=== PATIENT | female | born 1960 | race African-American/Black ===

== ENCOUNTER → 2022-06-16 | Outpatient (CLI) | payer MEDICAID ==
--- NOTE | 2022-06-16 12:23 | Diagnostic Imaging Report ---
Indication: Dysphasia. Procedure was performed in conjunction with speech pathology. Video fluoroscopy was performed during swallowing of barium at multiple consistencies. Total of 33 seconds of fluoroscopic time was utilized. Patient ingested thin barium as well as applesauce, banana and cracker consistency. Oral phase unremarkable. There is normal epiglottic tilt and laryngeal elevation. No aspiration or penetration was observed. IMPRESSION: Unremarkable modified barium swallow. Dictated by: Dictated on workstation # [id number]
== END ==
LOC: RAD 09:24
PROVIDERS: ATTEND Nurse Practitioner Family
DX: I63.9 Cerebral infarction, unspecified (principal)
CPT/HCPCS: 74230

== ENCOUNTER 2022-07-21 15:30 | Emergency (ER) | payer MEDICAID ==
[~2022-07-21] VITALS: Ht 165 cm; Wt 72.0 kg
[2022-07-21] MEDS ORDERED: DIATRIZOATE MEGLUM/SODIUM 37% 120 ML (GASTROGRAFIN) NG ONE (16:00)
--- NOTE | 2022-07-21 16:09 | ED GI ---
General Chief Complaint: Catheter/Drain/Tube Problems Stated Complaint: FEEDING TUBE FELL OUT Nursing Triage Note: PT ARRIVED PER EMS FROM [place], PT HAS PULLED OUT FEEDING TUBE. PT IS CONFUSED. Source of Information: Patient, EMS Exam Limitations: No Limitations (JIGNESH ANDREA) History of Present Illness Date Seen by Provider: Jul 21, 2022 Time Seen by Provider: 16:07 Initial Comments Patient is a 61-year-old female who is a [facility]. Patient was sent over to the ED for PEG tube replacement has patient pulled out her PEG tube on arrival. No other current complaints at this time. Requesting PEG tube replacement and to return back to the facility. Eating and drinking without any issue. No change in mental status. Currently at her baseline according to EMS. Patient denies chest pain, abdominal pain, vomiting, headache (JIGNESH ANDREA) Allergies and Home Medications Allergies Coded Allergies: No Known Drug Allergies (Unverified , 07/21/22) Patient Home Medication List Home Medication List Reviewed: Yes (JIGNESH ANDREA) Review of Systems Review of Systems Constitutional: No chills, No diaphoresis, No malaise, No weakness EENTM: No Double Vision, No Eye Pain Respiratory: Denies Cough, Denies SOA With Exertion, Denies SOA at Rest Cardiovascular: Denies Chest Pain Gastrointestinal: Denies Abdominal Pain, Denies Diarrhea, Denies Nausea, Denies Vomiting Genitourinary: Denies Burning, Denies Discharge Musculoskeletal: No back pain, No joint pain (JIGNESH ANDREA) All Other Systems Reviewed Negative Unless Noted: Yes (JIGNESH ANDREA) Past Ckibzzh-Qqeqbo-Efxask Hx Patient Social History Tobacco Use?: No Substance use?: No Alcohol Use?: No Pt feels they are or have been: No (JIGNESH ANDREA) Immunizations Up To Date Influenza Vaccine Up-to-Date: Yes; Up-to-Date First/Initial COVID19 Vaccinat: YES Second COVID19 Vaccination Paul: YES (JIGNESH ANDREA) Past Medical History Surgery/Hospitalization HX: DYSPHAGIA, CVA,GOUT, STAGE 4 KIDNEY DISEASE, DM TYPE 2 (JIGNESH ANDREA) Physical Exam Vital Signs Vital Signs - First Documented 07/21/22 15:35 Temp 36.4 Pulse 79 Resp 18 B/P (MAP) 134/78 (96) Pulse Ox 99 (CATE JAQUEZ MD) Vital Signs Capillary Refill : Less Than 3 Seconds (JIGNESH ANDREA) Height/Weight/BMI Height: '" Weight: lbs. oz. kg; 26.00 BMI Method: General Appearance: WD/WN, no apparent distress HEENT: PERRL/EOMI, normal ENT inspection, TMs normal, pharynx normal Neck: non-tender, full range of motion, supple Respiratory: chest non-tender, lungs clear, normal breath sounds, no respiratory distress Cardiovascular: regular rate, rhythm, no edema, no gallop Gastrointestinal: normal bowel sounds, non tender, soft, no organomegaly, other (Patent stoma. No surrounding redness or swelling. No tenderness to palpate.) Extremities: normal range of motion, non-tender, normal inspection, no pedal edema Back: normal inspection, no CVA tenderness Neurologic/Psychiatric: data analyst report writer II-XII nml as tested, no motor/sensory deficits, alert, normal mood/affect, oriented x 3 Skin: normal color, warm/dry (JIGNESH ANDREA) Progress/Results/Core Measures Results/Orders Vital Signs/I&O 07/21/22 07/21/22 15:35 16:20 Temp 36.4 36.4 Pulse 79 79 Resp 18 18 B/P (MAP) 134/78 (96) 134/78 Pulse Ox 99 99 (CATE JAQUEZ MD) Blood Pressure Mean: 96 Departure Communication (PCP) Difficulty obtaining history from patient due to her current intellectual disability. Patient vital signs stable. Patient was sent over from [facility] for PEG tube replacement. 18-gauge Solis temporary catheter was placed secondary to not having a PEG tube. Successful placement with abdominal x-ray with contrast. Patient tolerated procedure well. Follow-up with GI specialist for correct PEG tube. This was discussed with half-way. Obtained history from EMS and half-way. (JIGNESH ANRDEA) Impression Primary Impression: PEG tube malfunction Disposition: 01 HOME, SELF-CARE Condition: Stable Departure-Patient Inst. Decision time for Depature: 16:35 (JIGNESH ANDREA) Referrals: JACINTO FERNANDEZ DO (PCP/Family) Primary Care Physician Patient Instructions: Gastrostomy, Permanent and Temporary (DC) ATTENDING PHYSICIAN NOTE: I was physically present as attending physician in the emergency department during the care of this patient, but I was not directly involved in the decision making or delivery of care for this patient. (CATE JAQUEZ MD) JIGNESH ANDREA Jul 21, 2022 16:09 CATE JAQUEZ MD Jul 23, 2022 06:29
[2022-07-21 16:20] VITALS: BP 134/78
--- NOTE | 2022-07-21 16:30 | Diagnostic Imaging Report ---
INDICATION: PEG tube placement. Dilute Gastrografin contrast was injected via the indwelling PEG tube. The tip appears to project over the lumen of the gastric body. Contrast opacifies the lumen of the stomach and duodenum without evidence of leak. IMPRESSION: Good positioning of PEG tube without leak identified. Dictated by: Dictated on workstation # [id number]
== END 2022-07-21 16:20 | disposition home or self-care (01) ==
LOC: EDUNIT# 15:30 → ER 15:31
DX: K94.23 Gastrostomy malfunction (principal)
CPT/HCPCS: 43762; 49465

== ENCOUNTER 2022-07-26 09:09 | Emergency (ER) | payer MEDICAID ==
[~2022-07-26] VITALS: Ht 170.2 cm; Wt 89.8 kg
--- NOTE | 2022-07-26 10:51 | ED GU-Female ---
General Chief Complaint: Catheter/Drain/Tube Problems Stated Complaint: G TUBE IS OUT Nursing Triage Note: PT TO [facility] BY [facility] WITH COMPLAINT OF G TUBE FALLING OUT. PT WAS SEEN HERE ON SUNDAY FOR SAME COMPLAINT AND HAD A FAITH CATHETER PLACED DUE TO NO REPLACEMENT PEG TUBE. Source: patient Exam Limitations: no limitations (JIGNESH ANDREA) History of Present Illness Date Seen by Provider: Jul 26, 2022 Time Seen by Provider: 10:48 Initial Comments Patient is a 61-year-old female who presents ED for PEG tube replacement. Patient pulled out her PEG tube at [facility]. She has no other current complaints. Patient is wheelchair-bound. Tolerating feedings. No fever, cough, chest pain, abdominal pain (JIGNESH ANDREA) Allergies and Home Medications Allergies Coded Allergies: No Known Drug Allergies (Unverified , 07/21/22) Patient Home Medication List Home Medication List Reviewed: Yes (JIGNESH ANDREA) Review of Systems Review of Systems Constitutional: No chills, No diaphoresis EENTM: No ear pain, No blurred vision, No double vision Respiratory: No cough, No dyspnea on exertion Cardiovascular: No chest pain Gastrointestinal: No abdominal pain, No diarrhea, No nausea, No vomiting Genitourinary: denies burning, denies discharge Musculoskeletal: No back pain, No joint pain Skin: No change in color Psychiatric/Neurological: Denies Depressed, Denies Emotional Problems (JIGNESH ANDREA) All Other Systemes Reviewed Negative Unless Noted: Yes (JIGNESH ANDREA) Past Wrcqdxp-Dxffuw-Bcmxrn Hx Patient Social History Tobacco Use?: No Use of E-Cig and/or Vaping dev: No Substance use?: No Alcohol Use?: No Pt feels they are or have been: No (JIGNESH ANDREA) Immunizations Up To Date First/Initial COVID19 Vaccinat: YES Second COVID19 Vaccination Paul: YES Third COVID19 Vaccination Date: YES (JIGNESH ANDREA) Past Medical History Surgery/Hospitalization HX: DYSPHAGIA, CVA,GOUT, STAGE 4 KIDNEY DISEASE, DM TYPE 2 (JIGNESH ANDREA) Physical Exam Vital Signs Vital Signs - First Documented 07/26/22 09:38 Pulse 71 Resp 16 B/P (MAP) 135/94 (108) Pulse Ox 100 O2 Delivery Room Air (CATE JAQUEZ MD) Vital Signs Capillary Refill : Less Than 3 Seconds (JIGNESH ANDREA) Height, Weight, BMI Height: '" Weight: lbs. oz. kg; 30.00 BMI Method: General Appearance: WD/WN, no apparent distress HEENT: PERRL/EOMI, normal ENT inspection, TMs normal, pharynx normal Neck: non-tender, full range of motion, supple, normal inspection Cardiovascular: regular rate, rhythm, no edema, no gallop, no JVD Respiratory: chest non-tender, lungs clear, normal breath sounds, no respiratory distress Gastrointestinal: other (stoma noted to RUQ. No surrounding redness, swelling. Clear fluid draining.) Back: normal inspection, no CVA tenderness, no vertebral tenderness Extremities: normal range of motion, non-tender, normal inspection Neurologic/Psychiatric: rn physician office II-XII nml as tested, no motor/sensory deficits, alert, normal mood/affect, oriented x 3 Skin: normal color (JIGNESH ANDRAE) Progress/Results/Core Measures Suspected Sepsis SIRS Temperature: Pulse: 71 Respiratory Rate: 16 Blood Pressure 135 /94 Mean: 108 (JIGNESH ANDREA) Results/Orders Medications Given in ED Current Medications Medications Dose Ordered Sig/Luanne Route Start Time Stop Time Status Last Admin Dose Admin Diatrizoate Meglum/ Diatrizoate Sod 120 ml ONCE ONCE NG 07/26/22 11:15 07/26/22 11:37 DC 07/26/22 11:18 30 ML (CATE JAQUEZ MD) Vital Signs/I&O 07/26/22 07/26/22 09:38 13:03 Pulse 71 Resp 16 B/P (MAP) 135/94 (108) 128/88 Pulse Ox 100 O2 Delivery Room Air (CATE JAQUEZ MD) Vital Signs/I&O Capillary Refill : Less Than 3 Seconds (JIGNESH ANDREA) Blood Pressure Mean: 108 Departure Communication (PCP) Replaced with 18 [place]. PEG tube in place verified with abdominal x-ray. Patient will be discharged back to [facility]. Follow-up with GI specialist. (JIGNESH ANDREA) Impression Primary Impression: PEG tube malfunction Disposition: 01 HOME, SELF-CARE Condition: Stable Departure-Patient Inst. Decision time for Depature: 10:51 (JIGNESH ANDREA) Referrals: JACINTO FERNANDEZ DO (PCP/Family) Primary Care Physician Patient Instructions: Gastrostomy, Permanent and Temporary (DC) ATTENDING PHYSICIAN NOTE: I was physically present as attending physician in the emergency department during the care of this patient, but I was not directly involved in the decision making or delivery of care for this patient. (CATE JAQUEZ MD) JIGNESH ANDREA Jul 26, 2022 10:51 CATE JAQUEZ MD Jul 26, 2022 20:53
[2022-07-26] MEDS ORDERED: DIATRIZOATE MEGLUM/SODIUM 37% 120 ML (GASTROGRAFIN) NG ONE (11:15)
--- NOTE | 2022-07-26 12:14 | Diagnostic Imaging Report ---
INDICATION: PEG tube check COMPARISON: 07/21/2019 TECHNIQUE: 2 radiographs of the abdomen were obtained after placement of dilute Gastrografin through the indwelling percutaneous gastrostomy catheter. Contrast is identified within the lumen of the stomach. Contrast also identified within the colon, likely related to prior PEG tube check. No evidence of bowel obstruction. No acute osseous abnormality. Surgical clips within the upper abdomen. IMPRESSION: Percutaneous gastrostomy catheter is in place with the distal tip within the lumen of the stomach. Dictated by: Dictated on workstation # [id number]
[2022-07-26 13:03] VITALS: BP 128/88
== END 2022-07-26 13:03 | disposition home or self-care (01) ==
LOC: EDUNIT# 09:09 → ER 09:10
DX: K94.23 Gastrostomy malfunction (principal); Z99.3 Dependence on wheelchair
CPT/HCPCS: 49465

== ENCOUNTER 2022-12-13 20:38 | Emergency (ER) | payer MEDICAID ==
[2022-12-13] MEDS ORDERED: OLANZapine 5 MG ODT (ZyPREXA ZYDIS) PO ONE (20:45)
--- NOTE | 2022-12-13 20:47 | ED General ---
General Chief Complaint: Abdominal/GI Problems Stated Complaint: VOMITING Source of Information: Patient, EMS, Long-Term Records, RN/MD Exam Limitations: Physical Impairments History of Present Illness Date Seen by Provider: Dec 13, 2022 Time Seen by Provider: 20:41 Initial Comments 61-year-old female with past medical history of CVA with residual speech deficits, diabetes, hypertension, hyperlipidemia, CKD [facility]. Started around midnight last night with numerous episodes of nonbilious vomiting. She has tried Zofran which helped a little bit, but continued to have vomiting today. Has not really wanted to eat or drink anything today. She is completely bedbound per the penitentiary report and does make her wishes known via talking at times but has significant residual issues from her prior stroke. Has had bowel movements x2 in the past 24 hours. She denies any pain anywhere at this time. Otherwise denying any other acute complaints. Allergies and Home Medications Allergies Coded Allergies: No Known Drug Allergies (Unverified , 07/21/22) Patient Home Medication List Home Medication List Reviewed: Yes Review of Systems Review of Systems Constitutional: No fever EENTM: no symptoms reported Respiratory: no symptoms reported Cardiovascular: no symptoms reported Gastrointestinal: see HPI Genitourinary: no symptoms reported Musculoskeletal: no symptoms reported Skin: no symptoms reported Psychiatric/Neurological: No Symptoms Reported Past Sgcuwak-Omqehx-Nzgane Hx Patient Social History Tobacco Use?: No Immunizations Up To Date First/Initial COVID19 Vaccinat: YES Second COVID19 Vaccination Paul: YES Third COVID19 Vaccination Date: YES Past Medical History Surgery/Hospitalization HX: DYSPHAGIA, CVA,GOUT, STAGE 4 KIDNEY DISEASE, DM TYPE 2 Physical Exam Vital Signs Vital Signs - First Documented 12/13/22 20:40 Pulse 83 Resp 19 Capillary Refill : Height, Weight, BMI Height: '" Weight: lbs. oz. kg; 30.00 BMI Method: General Appearance: WD/WN, Anxious Eyes: Bilateral Eye Normal Inspection HEENT: PERRL/EOMI, Normal ENT Inspection, Pharynx Normal Neck: Full Range of Motion, Normal Inspection, Non Tender, Supple Respiratory: Chest Non Tender, Lungs Clear, Normal Breath Sounds, No Accessory Muscle Use, No Respiratory Distress Cardiovascular: Regular Rate, Rhythm, Normal Peripheral Pulses Gastrointestinal: Normal Bowel Sounds, Non Tender, Soft; No Distended, No Guarding Back: Normal Inspection, No CVA Tenderness Extremity: Normal Capillary Refill, Normal Inspection, Normal Range of Motion, Non Tender, No Calf Tenderness Neurologic/Psychiatric: Alert, Other (Oriented to self, moving all extremities) Skin: Normal Color, Warm/Dry Progress/Results/Core Measures Suspected Sepsis SIRS Temperature: Pulse: Respiratory Rate: Laboratory Tests 12/13/22 20:50: White Blood Count 18.0H Blood Pressure / Mean: Laboratory Tests 12/13/22 20:50: Creatinine 1.52H, Platelet Count 283, Total Bilirubin 0.7 Results/Orders Lab Results Laboratory Tests Test 12/13/22 20:50 12/13/22 22:30 Range/Units White Blood Count 18.0 H 4.3-11.0 10^3/uL Red Blood Count 3.90 3.80-5.11 10^6/uL Hemoglobin 13.2 11.5-16.0 g/dL Hematocrit 39 35-52 % Mean Corpuscular Volume 100 H 80-99 fL Mean Corpuscular Hemoglobin 34 25-34 pg Mean Corpuscular Hemoglobin Concent 34 32-36 g/dL Red Cell Distribution Width 13.0 10.0-14.5 % Platelet Count 283 130-400 10^3/uL Mean Platelet Volume 9.6 9.0-12.2 fL Immature Granulocyte % (Auto) 1 % Neutrophils (%) (Auto) 79 H 42-75 % Lymphocytes (%) (Auto) 14 12-44 % Monocytes (%) (Auto) 6 0-12 % Eosinophils (%) (Auto) 0 0-10 % Basophils (%) (Auto) 0 0-10 % Neutrophils # (Auto) 14.3 H 1.8-7.8 10^3/uL Lymphocytes # (Auto) 2.5 1.0-4.0 10^3/uL Monocytes # (Auto) 1.0 0.0-1.0 10^3/uL Eosinophils # (Auto) 0.0 0.0-0.3 10^3/uL Basophils # (Auto) 0.0 0.0-0.1 10^3/uL Immature Granulocyte # (Auto) 0.2 H 0.0-0.1 10^3/uL Neutrophils % (Manual) 81 % Lymphocytes % (Manual) 13 % Monocytes % (Manual) 3 % Metamyelocytes % 1 % Band Neutrophils 1 % Reactive Lymphocytes 1 % Platelet Estimate ADEQUATE Hypochromasia SLIGHT Target Cells SLIGHT Sodium Level 136 135-145 MMOL/L Potassium Level 3.7 3.6-5.0 MMOL/L Chloride Level 99 98-107 MMOL/L Carbon Dioxide Level 21 21-32 MMOL/L Anion Gap 16 H 5-14 MMOL/L Blood Urea Nitrogen 31 H 7-18 MG/DL Creatinine 1.52 H 0.60-1.30 MG/DL Estimat Glomerular Filtration Rate 39 BUN/Creatinine Ratio 20 Glucose Level 134 H 70-105 MG/DL Calcium Level 11.5 H 8.5-10.1 MG/DL Corrected Calcium 8.5-10.1 MG/DL Magnesium Level 1.8 1.6-2.4 MG/DL Total Bilirubin 0.7 0.1-1.0 MG/DL Aspartate Amino Transf (AST/SGOT) 18 5-34 U/L Alanine Aminotransferase (ALT/SGPT) 52 0-55 U/L Alkaline Phosphatase 105 40-136 U/L Troponin I < 0.028 <0.028 NG/ML Total Protein 8.9 H 6.4-8.2 GM/DL Albumin 4.7 H 3.2-4.5 GM/DL Lipase 6 L 8-78 U/L Urine Color YELLOW Urine Clarity SL CLOUDY Urine pH 8.0 5-9 Urine Specific [place] 1.020 1.016-1.022 Urine Protein 3+ H NEGATIVE Urine Glucose (UA) NEGATIVE NEGATIVE Urine Ketones NEGATIVE NEGATIVE Urine Nitrite NEGATIVE NEGATIVE Urine Bilirubin NEGATIVE NEGATIVE Urine Urobilinogen 0.2 < = 1.0 MG/DL Urine Leukocyte Esterase TRACE H NEGATIVE Urine RBC (Auto) TRACE-I H NEGATIVE Urine RBC 2-5 H /HPF Urine WBC 25-50 H /HPF Urine Squamous Epithelial Cells 10-25 H /HPF Urine Crystals NONE /LPF Urine Bacteria LARGE H /HPF Urine Casts NONE /LPF Urine Mucus LARGE H /LPF Urine Culture Indicated YES My Orders Orders - JIGNESH AYALA MD Cbc With Automated Diff (12/13/22 20:42) Comprehensive Metabolic Panel (12/13/22 20:42) Lipase (12/13/22 20:42) Magnesium (12/13/22 20:42) Troponin I [place] (12/13/22 20:42) Ua Culture If Indicated (12/13/22 20:42) Ed Iv/Invasive Line Start (12/13/22 20:42) Ekg Tracing (12/13/22 20:42) Monitor-Rhythm Ecg Trace Only (12/13/22 20:42) Straight Cath For Spec.-Adult (12/13/22 20:42) Olanzapine Orally Dissolve Tab (Zyprexa (12/13/22 20:45) Ondansetron Injection (Zofran Injectio (12/13/22 21:00) Ns Iv 500 Ml (Sodium Chloride 0.9%) (12/13/22 20:52) Ct Abdomen/Pelvis Wo (12/13/22 20:53) Ns Iv 500 Ml (Sodium Chloride 0.9%) (12/13/22 20:56) Droperidol Inj (Ed Only) (Inapsine Inj ( (12/13/22 21:15) Manual Differential (12/13/22 20:50) Ekg Tracing (12/13/22 21:57) Labetalol Injection (Normodyne Injection (12/13/22 22:45) Urine Culture (12/13/22 22:30) Ceftriaxone Iv/Im (Rocephin Iv/Im) (12/13/22 23:00) Medications Given in ED Current Medications Medications Dose Ordered Sig/Luanne Route Start Time Stop Time Status Last Admin Dose Admin Droperidol 2.5 mg ONCE ONCE IV 12/13/22 21:15 12/13/22 21:16 DC 12/13/22 21:06 2.5 MG Ondansetron HCl 4 mg ONCE ONCE IVP 12/13/22 21:00 12/13/22 21:01 DC 12/13/22 20:57 4 MG Vital Signs/I&O 12/13/22 20:40 Pulse 83 Resp 19 B/P (MAP) Capillary Refill : Progress Note : Progress Note 61-year-old female with above history coming in due to vomiting as [facility]. ABCs were intact and vitals were stable on presentation. Physical exam with a soft and not really tender abdomen, patient has had a prior stroke and has difficulty verbalizing issues. Because of this, broad work-up obtained. EKG with no acute ischemic changes on my interpretation. IV was placed and basic labs were obtained were significant for slightly elevated white blood cell count, urinalysis with concerns for infection, creatinine around her baseline, negative troponin. CT abdomen pelvis on my interpretation with no significant abnormality. Per the overnight stat rad read, there is no obstruction, no calculi or hydronephrosis, some mild bilateral perinephric stranding which is likely senescent. She was given IV ceftriaxone here followed by prescription. I contacted the [facility] a few times to get report as well as follow back up with him. Patient is well-appearing now, and I believe stable for discharge back to the [facility]. She was sent home with strict return precautions. Diagnostic Imaging Diagonstic Imaging: CT (abd/pelvis) Departure Impression Primary Impression: Gastritis Qualified Codes: K29.00 - Acute gastritis without bleeding Additional Impression: Cystitis Disposition: HOME, SELF-CARE Condition: Stable Departure-Patient Inst. Decision time for Depature: 23:25 Referrals: JACINTO FERNANDEZ DO (PCP/Family) Primary Care Physician Patient Instructions: Gastritis ED, Acute Cystitis (DC) Add. Discharge Instructions: Her urine did show an infection. The CT was not concerning for any type of obstruction or concern. This is likely just a GI bug that will take time to pass. Antibiotics were sent to her pharmacy as well as Phenergan suppository as a second line if the Zofran is not working. Scripts Promethazine HCl (Promethazine Suppository) 25 Mg Supp.rect 25 MG RC Q8H PRN for NAUSEA/VOMITING-2ND LINE for 5 Days, #15 SUPP.RECT Prov: JIGNESH AYALA MD 12/13/22 Cefdinir (Cefdinir) 300 Mg Capsule 300 MG PO BID for 5 Days, #10 CAP Prov: JIGNESH AYALA MD 12/13/22 JIGNESH AYALA MD Dec 13, 2022 20:47
[2022-12-13] MEDS ORDERED: NS IV 500 ML 500 ML IV STA (20:52)
[2022-12-13] MEDS ORDERED: NS IV 500 ML 500 ML ONE (20:56)
[2022-12-13] MEDS ORDERED: ONDANSETRON 4 MG/2 ML (SDV) Z0FRAN IVP ONE (21:00)
[2022-12-13 21:14] LABS: BASOPHILS % (AUTO) 0 % (0-10); EOSINOPHILS % (AUTO) 0 % (0-10); HEMATOCRIT 39 % (35-52); HEMOGLOBIN 13.2 g/dL (11.5-16.0); LYMPHOCYTES # (AUTO) 2.5 10^3/uL (1.0-4.0); LYMPHOCYTES % (AUTO) 14 % (12-44); MEAN CORPUSCULAR HEMOGLOBIN 34 pg (25-34); MEAN CORPUSCULAR HGB CONC 34 g/dL (32-36); MEAN CORPUSCULAR VOLUME 100 fL (80-99); MEAN PLATELET VOLUME 9.6 fL (9.0-12.2); MONOCYTES % (AUTO) 6 % (0-12); NEUTROPHILS # (AUTO) 14.3 10^3/uL (1.8-7.8); NEUTROPHILS % (AUTO) 79 % (42-75); PLATELET COUNT 283 10^3/uL (130-400)
[2022-12-13] MEDS ORDERED: DROPERIDOL 5 MG/2 ML (INAPSINE) ED ONLY! IV ONE (21:15)
[2022-12-13 21:30] LABS: ALANINE AMINOTRANSFERASE 52 U/L (0-55); ALBUMIN 4.7 GM/DL (3.2-4.5); ALKALINE PHOSPHATASE 105 U/L (40-136); BILIRUBIN,TOTAL 0.7 MG/DL (0.1-1.0); BUN/CREATININE RATIO 20; CALCIUM 11.5 MG/DL (8.5-10.1); CARBON DIOXIDE 21 MMOL/L (21-32); CHLORIDE 99 MMOL/L (98-107); CREATININE SERUM 1.52 MG/DL (0.60-1.30); GFR ESTIMATED 39; GLUCOSE 134 MG/DL (70-105); LIPASE 6 U/L (8-78); MAGNESIUM 1.8 MG/DL (1.6-2.4); POTASSIUM 3.7 MMOL/L (3.6-5.0); SODIUM 136 MMOL/L (135-145); TOTAL PROTEIN 8.9 GM/DL (6.4-8.2)
[2022-12-13 22:13] LABS: BAND NEUTROPHILS 1 %; LYMPHOCYTES % (MANUAL) 13 %; METAMYELOCYTES % 1 %; MONOCYTES % (MANUAL) 3 %; NEUTROPHILS % (MANUAL) 81 %; REACTIVE LYMPHOCYTES 1 %
[2022-12-13 22:14] LABS: HYPOCHROMASIA SLIGHT; PLATELET ESTIMATE ADEQUATE; TARGET CELLS SLIGHT
[2022-12-13 22:38] LABS: BILIRUBIN,URINE NEGATIVE (NEGATIVE); CLARITY,URINE SL CLOUDY; COLOR,URINE YELLOW; GLUCOSE, URINE (UA) NEGATIVE (NEGATIVE); KETONES,URINE NEGATIVE (NEGATIVE); LEUKOCYTE ESTERASE ,URINE TRACE (NEGATIVE); NITRITE,URINE NEGATIVE (NEGATIVE); PROTEIN,URINE 3+ (NEGATIVE)
[2022-12-13] MEDS ORDERED: LABETALOL HCL 20 MG/4 ML VIAL IV ONE (22:45)
[2022-12-13 22:56] LABS: BACTERIA,URINE LARGE /HPF; WBC,URINE 25-50 /HPF
[2022-12-13] MEDS ORDERED: cefTRIAXone IV/IM 1,000 MG in NS (IVPB) 50 ML IV ONE (23:00)
[2022-12-13] MEDS ORDERED: PROM25SU44 RC (23:12)
[2022-12-13] MEDS ORDERED: CEFD300C3 PO (23:12)
[2022-12-14 01:07] VITALS: BP 167/89
--- NOTE | 2022-12-14 08:44 | Diagnostic Imaging Report ---
PROCEDURE: CT abdomen and pelvis without contrast. TECHNIQUE: Multiple contiguous axial images were obtained through the abdomen and pelvis without the use of intravenous contrast. Auto Exposure Controls were utilized during the CT exam to meet ALARA standards for radiation dose reduction. INDICATION: Abdominal pain and vomiting. No prior studies are available for comparison. The lung bases are clear. No focal liver mass identified. There appear to be surgical clips in gallbladder fossa. No biliary duct dilatation is seen. Pancreas and spleen are unremarkable. No adrenal mass is identified. No definite renal calculi or hydronephrosis is identified. No ureteral or bladder calculi are seen. Aorta is calcified but nonaneurysmal. Small and large bowel loops are normal caliber. Appendix is unremarkable. No inflammatory changes are seen. There is no free fluid or fluid collection identified. The uterus and bladder are unremarkable. IMPRESSION: 1. Unremarkable noncontrast CT of the abdomen and pelvis. No acute abnormality is detected. Dictated by: Dictated on workstation # [id number]
== END 2022-12-14 01:07 | disposition home or self-care (01) ==
LOC: EDUNIT# 20:38 → ER 20:40
DX: K29.70 Gastritis, unspecified, without bleeding (principal); N30.90 Cystitis, unspecified without hematuria
CPT/HCPCS: 36415; 51701; 74176; 80053; 81000; 83690; 83735; 84484; 85007; 85027; 87077; 87088; 87186; 93005; 93041